=== PATIENT | female | born 1950 | race Caucasian/White ===

== ENCOUNTER 2016-12-22 12:21 | Day surgery (SDC) | payer MEDICARE, OTHER ==
[2016-12-22] MEDS ORDERED: TROPICAMIDE 1% OPHTH 2 ML DROPS OPTH ONE (12:53)
[2016-12-22] MEDS ORDERED: CYCLOPENTOLATE 1% OPHTH DROPS 2 ML OPTH ONE (12:53)
[2016-12-22] MEDS ORDERED: KETOROLAC 0.45% OPHTH DROPS OPTH ONE (12:53)
[2016-12-22] MEDS ORDERED: LACTATED RINGERS 500 ML IV ONE (13:00)
[2016-12-22] MEDS ORDERED: BRIMONIDINE 0.2% OPHTH DROPS 5 ML OPTH ONE (13:47)
[2016-12-22] MEDS ORDERED: CHONDR SULF/HYALURONATE SYRINGE IO ONE (13:47)
[2016-12-22] MEDS ORDERED: TETRACAINE OPHTH DROPS 2 ML OPTH ONE (13:47)
[2016-12-22] MEDS ORDERED: levoFLOXacin 0.5% OPHTH DROPS 5 ML OPTH ONE (13:47)
[2016-12-22] MEDS ORDERED: PROPARACAINE 0.5% OPHTH DROPS 15 ML OPTH ONE (13:47)
[2016-12-22] MEDS ORDERED: EPINEPHrine 1 MG/ML AMP IO ONE (13:47)
[2016-12-22] MEDS ORDERED: BSS/LIDOCAINE/EPINEPHRINE 1 ML SYRINGE IO ONE (13:54)
[2016-12-22] MEDS ORDERED: MIDAZOLAM 2 MG/2 ML VIAL IVP ONE (14:03)
== END 2016-12-22 12:22 | disposition home or self-care (01) ==
PROC: 08RJ3JZ Replacement of Right Lens with Synthetic Substitute, Percutaneous Approach (ICD-10-PCS; principal; 2016-12-22 12:55)
DX: H26.9 Unspecified cataract (principal); I10 Essential (primary) hypertension; J44.9 Chronic obstructive pulmonary disease, unspecified; I47.1 Supraventricular tachycardia; K21.9 Gastro-esophageal reflux disease without esophagitis; F41.9 Anxiety disorder, unspecified; F40.240 Claustrophobia; Z87.01 Personal history of pneumonia (recurrent)
CPT/HCPCS: 66984; V2632

== ENCOUNTER 2017-03-29 10:00 | Outpatient (CLI) | payer MEDICARE, OTHER ==
--- NOTE | 2017-03-30 11:11 | Mammography Report ---
DIGITAL BILATERAL SCREENING MAMMOGRAM: 03/29/2017 CLINICAL HISTORY: A 66-year-old female in for routine screening mammogram. Patient has no family hi story of breast cancer. Patient has no prior breast surgeries. COMPARISON: 11/27/2010, 02/28/2012, 11/14/2014, 11/18/2015. TECHNIQUE: Routine CC and MLO projections were obtained of the breasts. FINDINGS: Breast parenchyma consists of scattered fibroglandular densities. No significant clusters of calcification are seen. No masses are noted. No change is seen. IMPRESSION: BREASTS APPEAR RADIOGRAPHICALLY BENIGN. BI-RADS category 1, negative. RECOMMENDATION: Annual bilateral screening mammography. STANDARD QUALIFYING STATEMENTS 1. This examination was reviewed with the aid of Computer-Aided Detection (CAD). 2. A negative or benign imaging report should not delay biopsy if clinically suspicious findings are present. Consider surgical consultation if warranted. More than 5% of cancers are not identified by i maging. 3. Dense breasts may obscure an underlying neoplasm. JOB #: [id number] EXT JOB #:[id number]
== END 2017-03-29 10:01 | disposition home or self-care (01) ==
LOC: DI 10:00
PROVIDERS: ATTEND Internal Medicine
DX: Z12.31 Encounter for screening mammogram for malignant neoplasm of breast (principal)
CPT/HCPCS: 77067

== ENCOUNTER 2017-06-02 07:13 | Day surgery (SDC) | payer MEDICARE, OTHER ==
[2017-06-02] MEDS ORDERED: LACTATED RINGERS 1,000 ML IV ONE (07:24)
--- NOTE | 2017-06-02 07:38 | HISTORY & PHYSICAL EXAMINATION ---
HPI - History of Present Illness HPI Comment/Other: Olivia is here for screening colonoscopy. Current Meds: DAILY MULTIVITAMIN ORAL CAPS (MULTIPLE VITAMINS-MINERALS) Take one capsule by mouth daily IRON TABS (FERROUS GLUCONATE TABS) Take one tablet by mouth daily SM B SUPER VITAMIN COMPLEX ORAL TABS (B [id number] ACID) Take one tablet by mouth daily VITAMIN K2-VITAMIN D3 CAPS (VITAMIN D-VITAMIN K CAPS) Take 5000mg by mouth daily AZITHROMYCIN 250 MG ORAL TABS (AZITHROMYCIN) Take one tablet by mouth on tuesday , tuesday and tuesday HYDROCHLOROTHIAZIDE 25 MG TABS (HYDROCHLOROTHIAZIDE) Take one tablet by mouth every morning AMITRIPTYLINE HCL 75 MG TABS (AMITRIPTYLINE HCL) Take one tablet by mouth at bedtime IBUPROFEN 200 MG TABS (IBUPROFEN) Take two to three tablets by mouth with food every 6 hours as needed for pain TRAMADOL HCL 50 MG TABS (TRAMADOL HCL) Take two tablets by mouth three times daily as needed for pain BACLOFEN TABS (BACLOFEN TABS) Take 20mg by mouth three times daily OMEPRAZOLE 20 MG CPDR (OMEPRAZOLE) Take two capsules by mouth twice daily Allergies: * MYCOBUTIN (Critical) * BETADYNE (Critical) Past Medical History: Reviewed history and no changes required: Irregular Heartbeat HTN SOB Chronic cough Heartburn Acid Reflux Tuberculosis Chronic Infection Depression Anxiety Claustrophobia Supraventricular tachycardia Arthralgia [id number] Restless legs Past Surgical History: Reviewed history and no changes required: Tubal ligation 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 Family History Summary: Reviewed history and no changes required: 04/27/2017 Mother (biol.) - Has Family History of Other Medical Problems - Heart - Entered On: 04/27/2017 Father (biol.) - Has Family History of Other Medical Problems - Aortic aneurysm , atherosclerosis - Entered On: 04/27/2017 Social History: Reviewed history and no changes required: Risk Factors: Smoked Tobacco Use: Never smoker Drug use: no Alcohol use: yes Drinks per day: 1-2 week Exercise: yes Type of Exercise: gardening Medications were reviewed with the patient during this visit. Allergies were reviewed with the patient during this visit. Allergies: * MYCOBUTIN (Critical) * BETADYNE (Critical) Physical Exam General: well developed, well nourished, in no acute distress Lungs: clear bilaterally to A & P Heart: regular rate and rhythm, S1, S2 without murmurs, rubs, gallops, or clicks Abdomen: bowel sounds positive; abdomen soft and non-tender without masses, organomegaly, or hernias noted Pulses: pulses normal in all 4 extremities Extremities: no clubbing, cyanosis, edema, or deformity noted with normal full range of motion of all joints Cervical Nodes: no significant adenopathy Psych: alert and cooperative; normal mood and affect; normal attention span and concentration Problems: Problems Added: 1) Dx of Screening, colon cancer ([id number]) (ICD-V76.51) Impression & Recommendations: Problem # 1: Surveillance for colon cancer proceed with colonoscopy PMH/PSH - Past Medical History Cardiovascular: positive: Arrhythmia, Other Respiratory: positive: COPD Endocrine/Autoimmune: positive: None GI: positive: GERD : positive: None HEENT: positive: None, Other Psych: positive: Anxiety, Claustrophobia Musculoskeletal: positive: Osteoarthritis, Fibromyalgia Derm: positive: Rosacea MRSA Hx?: No - Past Surgical History 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: 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, 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 HEENT: positive: Cataracts Social & Family Hx - Social History Does the pt smoke?: No Smoking Status: Never smoker Does the pt drink ETOH?: No ETOH Use: Wine Does the pt have substance abuse?: No Meds/Allgy - Home Medications Home Medications: Ambulatory Orders Medication Instructions Recorded Confirmed Amitriptyline [Elavil] 10 mg PO QPM 12/22/16 06/02/17 Azithromycin 250 mg PO ONCE 12/22/16 06/02/17 Baclofen 10 mg PO TID 12/22/16 06/02/17 Hydrochlorothiazide 25 mg PO DAILY 12/22/16 06/02/17 Ibuprofen 800 mg PO BID PRN 12/22/16 06/02/17 Omeprazole 40 mg PO BID 12/22/16 06/02/17 traMADol [Ultram] 50 mg PO QID 12/22/16 06/02/17 - Allergies Allergies/Adverse Reactions: Allergies Allergy/AdvReac Type Severity Reaction Status Date / Time povidone-iodine Allergy Rash Verified 10/26/16 14:29 [From Betadine] rifabutin [From Mycobutin] AdvReac Unknown Verified 12/21/16 14:00 Exam - Vital Signs Vital Signs: Vital Signs x48h Temp Pulse Resp BP Pulse Ox 06/02/17 07:24 36.5 C 84 16 155/89 H 96
[2017-06-02] MEDS ORDERED: MIDAZOLAM 2 MG/2 ML VIAL IVP ONE (08:33)
[2017-06-02] MEDS ORDERED: fentaNYL 100 MCG/2 ML VIAL IVP ONE (08:33)
[2017-06-02 09:46] VITALS: BP 155/97
== END 2017-06-02 07:14 | disposition home or self-care (01) ==
LOC: SDS 07:13
PROVIDERS: ATTEND Surgery
PROC: 0DBL8ZX Excision of Transverse Colon, Via Natural or Artificial Opening Endoscopic, Diagnostic (ICD-10-PCS; principal; 2017-06-02 08:15)
DX: Z12.11 Encounter for screening for malignant neoplasm of colon (principal); K63.5 Polyp of colon; Q43.8 Other specified congenital malformations of intestine; K64.8 Other hemorrhoids; K21.9 Gastro-esophageal reflux disease without esophagitis; I10 Essential (primary) hypertension; F41.9 Anxiety disorder, unspecified; F32.9 Major depressive disorder, single episode, unspecified; Z90.710 Acquired absence of both cervix and uterus
CPT/HCPCS: 45380; J7120; 88305

== ENCOUNTER 2018-05-11 15:29 | Outpatient (CLI) | payer MEDICARE, OTHER ==
--- NOTE | 2018-05-12 13:31 | Mammography Report ---
Procedure Date: 05/11/2018 Accession Number: [id number] / [id number] Procedure: CLAUDIA - Screening Mammo Dig Bilat CPT Code: FULL RESULT: EXAM: Screening Mammo Dig Bilat DATE: 05/11/2018 3:42 PM CLINICAL HISTORY: 67-year-old for screening TECHNIQUE: Bilateral CC and MLO views were obtained. COMPARISON: 03/29/2017, 11/18/2015, 11/14/2014, 02/28/2012, 11/27/2010 FINDINGS: The breasts demonstrate scattered fibroglandular densities bilaterally. Coarse and punctate, typically benign calcifications are present. No suspicious masses, clustered microcalcifications, or regions of architectural distortion are identified. IMPRESSION: Benign findings RECOMMENDATION: Routine annual screening unless otherwise clinically indicated. BIRADS CATEGORY 2: Benign findings STANDARD QUALIFYING STATEMENTS: 1. This examination was reviewed with the aid of Computer-Aided Detection (CAD). 2. A negative or benign imaging report should not delay biopsy if clinically suspicious findings are present. Consider surgical consultation if warrented. More than 5% of cancers are not identified by imaging. 3. Dense breasts may obscure an underlying neoplasm.
== END 2018-05-11 15:30 | disposition home or self-care (01) ==
LOC: DI 15:29
PROVIDERS: ATTEND Internal Medicine
DX: Z12.31 Encounter for screening mammogram for malignant neoplasm of breast (principal)
CPT/HCPCS: 77067

== ENCOUNTER 2019-09-06 11:41 | Outpatient (CLI) | payer OTHER ==
[2019-09-06 12:25] LABS: CREATININE 0.8 mg/dL (0.4-1.0)
== END 2019-09-06 11:42 | disposition home or self-care (01) ==
LOC: LAB 11:41
PROVIDERS: ATTEND Internal Medicine Cardiovascular Disease
DX: I10 Essential (primary) hypertension (principal)
CPT/HCPCS: 36415; 80048

== ENCOUNTER 2021-06-22 13:24 | Outpatient (CLI) | payer OTHER | END 2021-06-22 13:25 | disposition home or self-care (01) | LOC: RT 13:24 | PROVIDERS: ATTEND Family Medicine | DX: R06.00 Dyspnea, unspecified (principal); B99.9 Unspecified infectious disease | CPT/HCPCS: 94060 ==

== ENCOUNTER 2021-09-15 14:49 | Outpatient (CLI) | payer MEDICARE | END 2021-09-15 14:50 | disposition home or self-care (01) | LOC: COV 14:49 | PROVIDERS: ATTEND Family Medicine | DX: Z20.822 Contact with and (suspected) exposure to COVID-19 (principal) ==

== ENCOUNTER 2021-09-24 04:39 | Outpatient (CLI) | payer MEDICARE | END 2021-09-24 04:40 | disposition critical access hospital (66) | LOC: EMS 04:39 | DX: R55 Syncope and collapse (principal) | CPT/HCPCS: A0425; A0427 ==

== ENCOUNTER 2021-09-24 04:46 | Emergency (ER) | payer MEDICARE, OTHER ==
--- NOTE | 2021-09-24 04:58 | ED Physician Documentation ---
History of Present Illness - Stated complaint Stated Complaint: SYNCOPE, GLF - Chief complaint Chief Complaint: Neuro - History obtained from History obtained from: Patient, EMS - Additonal information Additional information: 71yF with pmh htn, SVT, depression/anxiety presents after found her on floor of bathroom, apparently unconscious for 2 minutes time. EMS arrived on scene and she was AOX2 with normal vitals, not able to state day, month or year. patient AOX3 in ED, without complaints but does not remember events in the bathroom and states she feels "foggy" and "embarrassed". 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, 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 HEENT: Cataracts - Present Medications Home Medications: Ambulatory Orders Medication Instructions Recorded Confirmed Amitriptyline [Elavil] 10 mg PO QPM 12/22/16 09/24/21 Azithromycin 250 mg PO ONCE 12/22/16 06/02/17 Baclofen 10 mg PO TID 12/22/16 06/02/17 Ibuprofen 800 mg PO BID PRN 12/22/16 09/24/21 Omeprazole 40 mg PO BID 12/22/16 09/24/21 hydroCHLOROthiazide 25 mg PO DAILY 12/22/16 09/24/21 [Hydrochlorothiazide] traMADol [Ultram] 50 mg PO QID 12/22/16 09/24/21 Flecainide Acetate 100 mg PO DAILY 09/24/21 09/24/21 Losartan [Cozaar] 100 mg PO DAILY 09/24/21 09/24/21 - Allergies Allergies/Adverse Reactions: Allergies Allergy/AdvReac Type Severity Reaction Status Date / Time povidone-iodine Allergy Rash Verified 09/24/21 04:50 [From Betadine] rifabutin [From Mycobutin] AdvReac Unknown Verified 09/24/21 04:50 - Social History Does the pt smoke?: No Smoking Status: Never smoker Does the pt drink ETOH?: No Does the pt have substance abuse?: No Results - Vitals Vitals: Vital Signs - 24 hr 09/24/21 09/24/21 09/24/21 04:50 05:26 05:55 Temperature 36.4 C L Heart Rate 68 67 Heart Rate [ 61 Sitting] Heart Rate [ 80 Standing] Heart Rate [ 62 Supine] Respiratory 17 14 Rate Blood Pressure 107/62 105/66 Blood Pressure 101/75 [Sitting] Blood Pressure 82/53 L [Standing] Blood Pressure 100/61 [Supine] O2 Saturation 98 99 09/24/21 06:16 Temperature Heart Rate 67 Heart Rate [ Sitting] Heart Rate [ Standing] Heart Rate [ Supine] Respiratory 12 Rate Blood Pressure 111/61 Blood Pressure [Sitting] Blood Pressure [Standing] Blood Pressure [Supine] O2 Saturation 98 Oxygen O2 Source Room air - EKG (time done) 0453 Rhythm: NSR Intervals: Prolonged AL (250) Ischemia: Other (new LBBB not seen on prior ekg from 01/07/2015) - Labs Labs: Laboratory Tests 09/24/21 09/24/21 09/24/21 05:00 05:00 05:00 WBC 7.0 RBC 3.31 L Hgb 11.3 L Hct 33.5 L MCV 101.2 H MCH 34.1 H MCHC 33.7 RDW 12.0 Plt Count 357 MPV 8.1 Neut # (Auto) 4.6 Lymph # (Auto) 1.3 L Monroe # (Auto) 0.6 Eos # (Auto) 0.5 Baso # (Auto) 0.1 Absolute Nucleated RBC 0.00 Nucleated RBC % 0.0 Sodium 125 L Potassium 2.8 L Chloride 92 L Carbon Dioxide 21 Anion Gap 12.0 BUN 12 Creatinine 0.8 Estimated GFR (MDRD) 71 L Glucose 98 Calcium 9.0 Total Bilirubin 0.3 AST 20 ALT 14 Alkaline Phosphatase 72 Troponin I High Sens 519.5 H* Total Protein 6.0 L Albumin 3.7 Globulin 2.3 Albumin/Globulin Ratio 1.6 Lipase 36 Ethyl Alcohol < 5.0 PD MEDICAL DECISION MAKING - ED course ED course: Patient with dizziness, foggy thoughts, no chest pain. STEMI alert called given new LBBB and elevated troponin. d/w Dr. Lance Nobles, ED doc at [facility] who will d/w their sales representative [employer] for possible cath. they are boarding in their ED so they will accept in transfer only if patient is deemed to need immediate label maker. life flight on standby. [facility] sales representative rural power Dr. Hobson told Ed doc Dr. Nobles that patient needs urgent heart cath given syncope and new LBBB. not a STEMI label maker activation, so since [facility] is on full divert they would like us to call [facility] Evelina Jaquez, to see if they have capacity. Dr. Gomes is ED doc on today so we can call back to do ED-ED transfer if we don't get a bed within a few hours. d/w Dr. Baldwin, [facility], who thinks patient needs echo, medical eval, cardiology evaluation. [facility] has three waiting and do not have beds per transfer center. Dr. Lynn , ED doc at [facility] who accepts in transfer. Departure - Departure Disposition: 02 Transfer Acute Care Hosp Clinical Impression: Orthostatic hypotension, Syncope, Hyponatremia, Hypokalemia, Left bundle branch block, Elevated troponin Condition: Stable
[2021-09-24 05:08] LABS: BASOPHILS # (AUTO) 0.1 10^3/uL (0.0-0.1); BASOPHILS % (AUTO) 1.1 %; EOSINOPHILS # (AUTO) 0.5 10^3/uL (0.0-0.7); EOSINOPHILS % (AUTO) 7.3 %; HCT - HEMATOCRIT 33.5 % (37.0-47.0); HGB - HEMOGLOBIN 11.3 g/dL (12.0-16.0); LYMPHOCYTES # (AUTO) 1.3 10^3/uL (1.5-3.5); LYMPHOCYTES % (AUTO) 17.9 %; MEAN CORPUSCULAR HEMOGLOBIN 34.1 pg (27.0-31.0); MEAN CORPUSCULAR HGB CONC 33.7 g/dL (32.0-36.0); MEAN CORPUSCULAR VOLUME 101.2 fL (81.0-99.0); MEAN PLATELET VOLUME 8.1 fL (7.9-10.8); MONOCYTES # (AUTO) 0.6 10^3/uL (0.0-1.0); MONOCYTES % (AUTO) 8.2 %; NEUTROPHILS # (AUTO) 4.6 10^3/uL (1.5-6.6); NEUTROPHILS % (AUTO) 65.2 %; PLT - PLATELET COUNT 357 10^3/uL (130-450); RED BLOOD COUNT 3.31 10^6/uL (4.20-5.40)
[2021-09-24 05:22] LABS: ALBUMIN 3.7 g/dL (3.2-5.5); ALBUMIN/GLOBULIN RATIO 1.6 (1.0-2.2); ALKALINE PHOSPHATASE 72 IU/L (42-121); ALT ALANINE AMINOTRANSFERASE 14 IU/L (10-60); AST ASPARTATE AMINOTRANSFERASE 20 IU/L (10-42); BILIRUBIN,TOTAL 0.3 mg/dL (0.2-1.0); BUN - BLOOD UREA NITROGEN 12 mg/dL (6-20); CARBON DIOXIDE - CO2 21 mmol/L (21-32); CHLORIDE 92 mmol/L (101-111); CREATININE 0.8 mg/dL (0.4-1.0); ETOH - ETHANOL < 5.0 mg/dL; GFR - MDRD 71 (>89); GLUCOSE 98 mg/dL (70-100); LIPASE 36 U/L (22-51); POTASSIUM 2.8 mmol/L (3.5-5.0); SODIUM 125 mmol/L (135-145)
[2021-09-24] MEDS ORDERED: SODIUM CHLORIDE 0.9% 1,000 ML IV STA ×3 (05:25→06:06)
[2021-09-24] MEDS ORDERED: POTASSIUM CHLORIDE 20 MEQ/15 ML UDC PO STA (05:29)
[2021-09-24] MEDS ORDERED: ASPIRIN CHEW 81 MG TABLET PO STA (05:38)
[2021-09-24] MEDS ORDERED: HEPARIN 25000UNITS/500ML (D5W) 25,000 UNIT/500 ML BAG IV SCH (06:00)
[2021-09-24] MEDS ORDERED: ATORVASTATIN 40 MG TABLET PO STA (06:04)
[2021-09-24 06:17] VITALS: BP 111/61
[2021-09-24] MEDS ORDERED: ONDANSETRON 4 MG/2 ML VIAL IVP STA (06:36)
[2021-09-24 06:57] LABS: B. PARAPERTUSSIS- RESP PCR PAN NOT DETECTED; B. PERTUSSIS- RESP PCR PANEL NOT DETECTED; C. PNEUMONIAE- RESP PCR PANEL NOT DETECTED; CORONAVIRUS 229E-RESP PCR NOT DETECTED; CORONAVIRUS HKU1-RESP PCR NOT DETECTED; CORONAVIRUS NL63-RESP PCR NOT DETECTED; CORONAVIRUS OC43-RESP PCR NOT DETECTED; HUMAN METAPNEUMOVIRUS NOT DETECTED; INFLUENZA A- RESP PCR PANEL NOT DETECTED; INFLUENZA B - RESP PCR PANEL NOT DETECTED; M. PNEUMONIAE- RESP PCR PANEL NOT DETECTED; PARAINFLUENZA VIRUS 1 NOT DETECTED; PARAINFLUENZA VIRUS 2 NOT DETECTED; PARAINFLUENZA VIRUS 3 NOT DETECTED; PARAINFLUENZA VIRUS 4 NOT DETECTED; RHINOVIRUS/ENTEROVIRUS NOT DETECTED; RSV- RESP PCR PANEL NOT DETECTED; SARS-CoV-2 -RESP PCR PANEL NOT DETECTED
--- NOTE | 2021-09-24 07:09 | CT Report ---
PROCEDURE: HEAD WO INDICATIONS: syncope TECHNIQUE: Noncontrast 4.5 mm thick angled axial sections acquired from the foramen magnum to the vertex. For r adiation dose reduction, the following was used: automated exposure control, adjustment of mA and/or kV according to patient size. COMPARISON: None. FINDINGS: Image quality: Excellent. CSF spaces: Basal cisterns are patent. No extra-axial fluid collections. Ventricles are normal in size and shape. Brain: No midline shift. No intracranial masses or hemorrhage. Cabrera-white matter interface is norm al. Skull and face: Calvarium and visualized facial bones are intact, without suspicious lesions. Sinuses: Visualized sinuses and mastoids are clear. IMPRESSION: No acute intracranial disease process. Reviewed by: Meredith Botello MD, PhD on 09/24/2021 7:08 AM PST Approved by: Meredith Botello MD, PhD on 09/24/2021 7:08 AM [facility] Station ID: [id number]
--- NOTE | 2021-09-24 07:13 | XRAY Report ---
PROCEDURE: Chest 1 View X-Ray INDICATIONS: Chest Pain TECHNIQUE: One view of the chest was acquired. COMPARISON: None FINDINGS: Surgical changes and devices: None. Lungs and pleura: No pleural effusions or pneumothorax. Lungs are clear. Mediastinum: Mediastinal contours appear normal. Heart size is normal. Bones and chest wall: No suspicious bony lesions. Overlying soft tissues appear unremarkable. IMPRESSION: No acute cardiopulmonary disease process. Reviewed by: Meredith Botello MD, PhD on 09/24/2021 7:11 AM PST Approved by: Meredith Botello MD, PhD on 09/24/2021 7:11 AM PST Station ID: [id number]
== END 2021-09-24 06:47 | disposition short-term general hospital (02) ==
LOC: EDUNIT# → ED 04:46
DX: I95.1 Orthostatic hypotension (principal); E87.1 Hypo-osmolality and hyponatremia; E87.6 Hypokalemia; I44.7 Left bundle-branch block, unspecified; R00.8 Other abnormalities of heart beat; R79.89 Other specified abnormal findings of blood chemistry; I10 Essential (primary) hypertension; Z20.822 Contact with and (suspected) exposure to COVID-19
CPT/HCPCS: 36415; 70450; 71045; 80053; 83690; 84484; 85025; 87631; 93005; 96374; 99281; 99285; A9270; G0480; 0202U; 80320

== ENCOUNTER 2021-11-20 11:04 | Outpatient (CLI) | payer MEDICARE ==
--- NOTE | 2021-11-20 11:59 | CT Report ---
PROCEDURE: MAXILLOFACIAL WO INDICATIONS: FX OF LEFT ORBIT TECHNIQUE: Noncontrast 1.5 mm thick axial images acquired from the mandible through the frontal sinuses, with co ismael and sagittal reformatting. For radiation dose reduction, the following was used: automated ex posure control, adjustment of mA and/or kV according to patient size. COMPARISON: Correlation is made with prior recent head CT, 09/24/2021. FINDINGS: Image quality: Excellent. Bones and teeth: There is a minimally displaced fracture seen involving the left femoral floor, as s een on series 6 image 22 and on series 3 image 114. No extraocular muscular entrapment can be seen. Sinus rachel show no fracture or deformity. Nasal bones and septum are intact. Visualized portions o f the mandible demonstrate no fractures or subluxation. Zygomatic arches are intact. Pterygoid plat es are intact. Visualized portions of the skull base and auditory canals are intact. Focal C5-C6 degenerative change is partially seen. Sinuses: Paranasal sinuses are aerated, without fluid levels, mucosal thickening, or mucoceles. Mas toid air cells are aerated. Soft tissues: No edema, masses, or fluid collections. No enlarged lymph nodes. No soft tissue lace rations or debris. Vascular: Visualized vascular structures appear normal in the absence of contrast. Bony vascular fo ramina and canals are intact. IMPRESSION: Minimally displaced fracture of the left orbital floor. Reviewed by: Sanjeev Guillen MD on 11/20/2021 10:57 AM [facility] Approved by: Sanjeev Guillen MD on 11/20/2021 10:57 AM [facility] Station ID: [id number]
== END 2021-11-20 11:05 | disposition home or self-care (01) ==
LOC: DI 11:04
PROVIDERS: ATTEND Family Medicine
DX: S02.32XD Fracture of orbital floor, left side, subsequent encounter for fracture with routine healing (principal)

== ENCOUNTER 2022-01-20 11:54 | Outpatient (CLI) | payer MEDICARE ==
[2022-01-20 12:16] LABS: CREATININE 0.7 mg/dL (0.4-1.0)
[2022-01-20] MEDS ORDERED: GADOBUTROL 7.5 MMOL/7.5 ML VIAL ONE (12:57)
--- NOTE | 2022-01-20 15:11 | MRI Report ---
PROCEDURE: IACS W/WO INDICATIONS: ASYMMETRICAL SENSORINEURAL HEARING LOSS CONTRAST: IV CONTRAST: Gadavist ml: 4.8 TECHNIQUE: Noncontrast sagittal T1 spin echo, axial FLAIR, axial gradient echo, axial diffusion and ADC through the brain. Axial thin-slice 3D CISS, coronal balanced GE, axial T1 spin echo with fat saturation thr ough the internal auditory canals. After the administration of contrast, thin slice axial and connell l T1 spin echo with fat saturation through the internal auditory canals, and axial T1 spin echo with fat saturation through the brain. COMPARISON: None. FINDINGS: Image quality: Excellent. Cerebellopontine angles: No cerebellopontine angle masses. Inner ear structures appear normally for med. No suspicious enhancement in the internal auditory canal or along the course of the 7th cranial nerve. CSF spaces: Ventricles are normal in size and shape. No extra-axial fluid collections. Basal ciste rns are patent. Brain: There are several scattered foci of increased T2/FLAIR signal within the subcortical, deep, an d periventricular white matter both cerebral hemispheres as well as at least one signal abnormality i n the left cerebellar hemispheric white matter infratentorially. These are nonspecific but most likel y reflect sequela of chronic microvascular ischemic change. No signal abnormality in the midbrain or dez identified. No restricted diffusion to indicate recent ischemia. The major intracranial vascular flow related signal voids are maintained. No mass effect or midline shift. Skull and face: Calvarial marrow signal is normal. Orbits appear normal. Sinuses: Sinuses and mastoids are clear. IMPRESSION: No mass or other abnormality to explain hearing loss. Global cerebral volume loss and ch ronic microvascular ischemic changes. Reviewed by: Gordo Saba MD on 01/20/2022 3:10 PM PDT Approved by: Gordo Saba MD on 01/20/2022 3:10 PM PDT Station ID: [id number]
[2022-01-20] MEDS ORDERED: GADOBUTROL 7.5 MMOL/7.5 ML VIAL IVP ONE (17:06)
== END 2022-01-20 11:55 | disposition home or self-care (01) ==
LOC: DI 11:54
PROVIDERS: ATTEND Otolaryngology
DX: H90.3 Sensorineural hearing loss, bilateral (principal); G31.89 Other specified degenerative diseases of nervous system; I67.82 Cerebral ischemia
CPT/HCPCS: 36415; 70543; 82565; A9585

== ENCOUNTER 2023-03-15 09:36 | Emergency (ER) | payer MEDICARE ==
[2023-03-15 09:59] VITALS: BP 154/73
--- NOTE | 2023-03-15 10:20 | XRAY Report ---
PROCEDURE: Foot 3 View LT INDICATIONS: Trauma TECHNIQUE: 3 views of the foot were acquired. COMPARISON: None. FINDINGS: Bones: Mildly displaced and angulated fractures of the second, third, and fourth metatarsal necks. N o suspicious bony lesions. Soft tissues: No suspicious soft tissue calcifications or masses. IMPRESSION: Metatarsal neck fractures as above. Reviewed by: Joe Funez MD on 03/15/2023 10:18 AM PDT Approved by: Joe Funez MD on 03/15/2023 10:18 AM PDT Station ID: [id number]
--- NOTE | 2023-03-15 11:04 | ED Physician Documentation ---
History of Present Illness - Stated complaint Stated Complaint: LT FOOT INJ, FALL - Chief complaint Chief Complaint: Trauma Ext - Additonal information Additional information: Patient 72-year-old female presenting to the emergency department with left foot pain. Fell off a ladder 2 days ago. Denies head trauma, loss of consciousness or use of blood thinning medications. Pain increased with ambulation since the event. Review of Systems Constitutional: denies: Fever Eyes: denies: Loss of vision Ears: denies: Loss of hearing Nose: denies: Rhinorrhea / runny nose Throat: denies: Dental pain / toothache Cardiac: denies: Chest pain / pressure Respiratory: denies: Dyspnea GI: denies: Abdominal Pain : denies: Dysuria PD PAST MEDICAL HISTORY - Past Medical History Cardiovascular: Arrhythmia, Other Respiratory: COPD Endocrine/Autoimmune: None GI: GERD : None HEENT: None, Other Psych: Anxiety, Claustrophobia Musculoskeletal: Osteoarthritis, Fibromyalgia Derm: Rosacea - Past Surgical History Past Surgical History: Yes 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, 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 HEENT: Cataracts - Present Medications Home Medications: Ambulatory Orders Medication Instructions Recorded Confirmed Amitriptyline [Elavil] 10 mg PO QPM 12/22/16 09/24/21 Azithromycin 250 mg PO ONCE 12/22/16 06/02/17 Baclofen 10 mg PO TID 12/22/16 06/02/17 Ibuprofen 800 mg PO BID PRN 12/22/16 09/24/21 Omeprazole 40 mg PO BID 12/22/16 09/24/21 hydroCHLOROthiazide 25 mg PO DAILY 12/22/16 09/24/21 [Hydrochlorothiazide] traMADol [Ultram] 50 mg PO QID 12/22/16 09/24/21 Flecainide Acetate 100 mg PO DAILY 09/24/21 09/24/21 Losartan [Cozaar] 100 mg PO DAILY 09/24/21 09/24/21 HYDROcod/ACETAM 5/325 [Dutch John 5/325] 1 - 2 ea PO Q6H PRN #14 tablet 03/15/23 - Allergies Allergies/Adverse Reactions: Allergies Allergy/AdvReac Type Severity Reaction Status Date / Time povidone-iodine Allergy Rash Verified 03/15/23 09:58 [From Betadine] rifabutin [From Mycobutin] AdvReac Unknown Verified 03/15/23 09:58 - Social History Does the pt smoke?: No Smoking Status: Never smoker Does the pt drink ETOH?: No Does the pt have substance abuse?: No - Immunizations Immunizations are current?: Yes PD ED PE NORMAL - Vitals Vital signs reviewed: Yes - General General: Alert and oriented X 3 - HEENT HEENT: Atraumatic - Neck Neck: Supple, no meningeal sign - Cardiac Cardiac: RRR - Respiratory Respiratory: No respiratory distress - Abdomen Abdomen: Normal bowel sounds - Female Female : Deferred - Rectal Rectal: Deferred - Back Back: No CVA TTP - Derm Derm: Normal color - Extremities Extremities: No deformity - Neuro Neuro: Alert and oriented X 3, portfolio strategist 2-12 intact, No motor deficit Results - Vitals Vitals: Vital Signs - 24 hr 03/15/23 09:56 Temperature 37 C Heart Rate 57 L Respiratory 16 Rate Blood Pressure 154/73 H O2 Saturation 98 Oxygen O2 Source Room air PD Medical Decision Making - ED course ED course: Patient 72-year-old female presenting to the emergency department with fracture left third through fourth metatarsals. Neurovascularly intact. Provided hard soled shoe and crutches. Provided contact information for orthopedic follow-up. Given prescription for Dutch John for use for pain control. Clear return precautions given. Departure - Departure Disposition: 01 Home, Self Care Clinical Impression: Multiple closed fractures of metatarsal bone of left foot Qualifiers: Encounter type: initial encounter Qualified Code(s): S92.302A - Fracture of unspecified metatarsal bone(s), left foot, initial encounter for closed fracture Instructions: ED Crutch Walking, ED Fx Foot Follow-Up: Kevan Magdaleno MD [Provider Admit Priv/Credential] - Prescriptions: HYDROcod/ACETAM 5/325 [Dutch John 5/325] 1 - 2 ea PO Q6H PRN #14 tablet PRN Reason: Pain Comments: Thank you for allowing us to care for you today at [facility].\ Prescription sent to [facility]. Today in the emergency department you are diagnosed with fractures to the neck of your left third, fourth and fifth metatarsals. As we discussed this Will require careful follow-up with primary care and orthopedics. I have included contact information for local area orthopedic surgeon. Please call them first thing tomorrow. Tylenol and ibuprofen are excellent medications to take at home for pain control. Additionally have written you a prescription for small number of a stronger narcotic pain medication, please be aware that this medication is both sedating and habit-forming. It should not be used if you are operating a motor vehicle, using heavy machinery or you are the sole supervisor bleach plant of young children. It can increase your risk for falls. It cannot be refilled from the emergency department. Otherwise I recommend that you continue to use the crutches and hard soled shoe provided here in the emergency department as needed for pain control. Elevation of your injured extremity as well as application of ice packs are also excellent strategies for decreasing swelling and thereby decreasing pain. If it anytime you develop any new or worsening symptoms please do not hesitate to return. Discharge Date/Time: 03/15/23 11:59
== END 2023-03-15 11:59 | disposition home or self-care (01) ==
LOC: ED 09:36
DX: S92.322A Displaced fracture of second metatarsal bone, left foot, initial encounter for closed fracture (principal); S92.332A Displaced fracture of third metatarsal bone, left foot, initial encounter for closed fracture; S92.342A Displaced fracture of fourth metatarsal bone, left foot, initial encounter for closed fracture; W11.XXXA Fall on and from ladder, initial encounter
CPT/HCPCS: 99283

== ENCOUNTER 2023-03-21 08:00 | Outpatient (CLI) | payer MEDICARE ==
--- NOTE | 2023-03-21 09:35 | XRAY Report ---
PROCEDURE: Foot 3 View LT INDICATIONS: LEFT FOOT FRACTURE TECHNIQUE: 3 views of the foot were acquired. COMPARISON: 03/15/2023 FINDINGS: Bones: No change in alignment/position of the second, third, and fourth metatarsal neck fractures. M ild first MTP degenerative changes. Calcaneal enthesopathy. Soft tissues: No suspicious calcifications. IMPRESSION: No significant displacement of the second, third, and fourth metatarsal neck fractures. Reviewed by: Robert Mcbride MD on 03/21/2023 9:33 AM PDT Approved by: Robert Mcbride MD on 03/21/2023 9:33 AM PDT Station ID: [id number]
== END 2023-03-21 23:59 | disposition home or self-care (01) ==
LOC: DI.WOS 08:00
PROVIDERS: ATTEND Physician Assistant Surgical
DX: S92.322A Displaced fracture of second metatarsal bone, left foot, initial encounter for closed fracture (principal); S92.335A Nondisplaced fracture of third metatarsal bone, left foot, initial encounter for closed fracture; S92.345A Nondisplaced fracture of fourth metatarsal bone, left foot, initial encounter for closed fracture; M19.072 Primary osteoarthritis, left ankle and foot; M77.32 Calcaneal spur, left foot

== ENCOUNTER 2023-04-25 08:00 | Outpatient (CLI) | payer MEDICARE ==
--- NOTE | 2023-04-25 16:28 | XRAY Report ---
PROCEDURE: Foot 3 View LT INDICATIONS: LEFT FOOT FRACTURE TECHNIQUE: 3 views of the foot were acquired. COMPARISON: 03/21/2023 FINDINGS: Bones: Healing fractures of the second, third, and fourth metatarsal necks are seen. Mild scattered degenerative changes elsewhere. Calcaneal enthesopathy. Soft tissues: No suspicious calcifications. IMPRESSION: Healing fractures of the second, third, fourth metatarsal necks. Reviewed by: Robert Mcbride MD on 04/25/2023 4:26 PM PDT Approved by: Robert Mcbride MD on 04/25/2023 4:26 PM PDT Station ID: [id number]
== END 2023-04-25 23:59 | disposition home or self-care (01) ==
LOC: DI.WOS 08:00
PROVIDERS: ATTEND Physician Assistant Surgical
DX: S92.322D Displaced fracture of second metatarsal bone, left foot, subsequent encounter for fracture with routine healing (principal); S92.332D Displaced fracture of third metatarsal bone, left foot, subsequent encounter for fracture with routine healing; S92.342D Displaced fracture of fourth metatarsal bone, left foot, subsequent encounter for fracture with routine healing